=== PATIENT | female | born 1945 | race Caucasian/White ===

== ENCOUNTER → 2018-03-03 11:52 | Outpatient (CLI) | payer MEDICARE, SELFPAY ==
--- NOTE | 2018-03-03 11:53 | CA_ITS ---
PROCEDURE: 2-D M-mode and color Doppler study INDICATIONS FOR THE TEST: Chest pain X COPD Heart Murmur Tobacco SmokingEX Palpitations FatigueX Syncope Edema HypertensionXDiabetes Mellitus Rheumatic Fever SOBXDOEXObesityXHyperlipidemia Family History HD Additional History PATIENT INFORMATION HEIGHT: 64 WEIGHT:237 GENDER: Female B/P:137/74 2-D/M-MODE INTERPRETATION: 2-D MEASUREMENTS OBSERVED VALUES IN CMS Right Ventricular Dimension (RVDd) 1.1 Interventricular Septum (Thickness)(IVsd) .9 Left Ventricular Internal Dimensions(LVIDd) 6.0 Left Ventricular Posterior Wall (Thickness)(LVPWd) .9 Aortic Root 3.3 Aortic Cusp Separation 1.7 Left Atrial Dimensions (LAD) 3.6 2D 1. Left atrium is mildly enlarged, left ventricle is normal size, there is mild concentric left ventricular hypertrophy, visually estimated ejection fraction 55% with no obvious regional wall motion abnormality. 2. The right atrium and right ventricle are normal size and contractility. 3. The aortic valve is minimally thickened and fibrosed. Leaflet continue to display mobility. 4. The mitral and tricuspid valve leaflets are minimally thickened. 5. The pulmonic valve is poorly visualized. 6. No significant pericardial effusion noted. DOPPLER INTERROGATION: Doppler interrogation of the aortic, mitral and tricuspid valvular presence of mild aortic, mild mitral and tricuspid regurgitation, tricuspid and enteric velocity insufficient for calculation of the right ventricular systolic pressure, grade 1 diastolic dysfunction seen with tissue Doppler evidence of raised left atrial pressure. CONCLUSION: 1. Mildly enlarged left atrium, normal left ventricular size, mild concentric left ventricular hypertrophy, visually estimated ejection fraction 55% with no obvious regional wall motion abnormality, grade 1 diastolic dysfunction seen with tissue Doppler evidence of raised left atrial pressure. 2. Mild aortic, mild mitral and tricuspid regurgitation 3. No significant pericardial effusion noted.
--- NOTE | 2018-03-03 11:53 | NM_ITS ---
CARDIOLITE SPECT MYOCARDIAL PERFUSION SCAN, REST AND STRESS: EXERCISE STRESS [facility] REVIEW QGS EF AND WALL MOTION EVALUATION: QPS - PERFUSION EVALUATION HISTORY: CHEST PAIN AND SOB DOSE: 10.45 mCi technetium 99m mibi intravenously at rest followed by 32.0 mCi technetium 99m mibi following the intravenous ministration of 0.4 mg of Lexiscan. Resting blood pressure is 110/61. Stress blood pressure 120/61. FINDINGS: Ejection fraction is calculated to be 71%. Moderately decreased myocardial activity in the anterior apical wall with mildly decreased myocardial activity in the anterior apical wall. Images calculated ejection fraction of 71% with normal wall motion IMPRESSION: Anterior wall defect which is not consistent with breast attenuation although clinical correlation is advised. This test is most consistent with reversible ischemia in the anterior wall. Normal ejection fraction and normal wall motion
--- NOTE | 2018-03-03 13:50 | HMH.ITSHM ---
metoprolol spironolactone isosoribide hctz ezetimibe potassium vit e
== END ==
PROVIDERS: Family Provider Family Medicine; PCP Family Medicine; Visit Provider Internal Medicine
DX: I25.10 Atherosclerotic heart disease of native coronary artery without angina pectoris (principal); R06.00 Dyspnea, unspecified; R07.9 Chest pain, unspecified; R94.31 Abnormal electrocardiogram [ECG] [EKG]; E78.5 Hyperlipidemia, unspecified; I10 Essential (primary) hypertension; Z87.891 Personal history of nicotine dependence
CPT/HCPCS: 78452; 93017; 93306; A9502; J2785

== ENCOUNTER → 2018-12-02 13:52 | Outpatient (CLI) | payer MEDICARE, SELFPAY ==
[2018-12-02 15:08] LABS: Anion Gap 17.5 mEq/L (5-15); Blood Urea Nitrogen 20 mg/dL (7-18); Calcium 9.5 mg/dL (8.5-10.1); Carbon Dioxide 25 mmol/L (21.0-32.0); Chloride 99 mmol/L (98-107); Creatinine,Serum 1.14 mg/dL (0.55-1.02); Estimated Glomerular Filt Rate 47 ml/min (>60); GFR (African American) 56 ML/MIN (>60); Glucose 145 mg/dL (74-106); Potassium 3.5 mmoL/L (3.5-5.1); Sodium 138 mmol/L (136-145)
== END ==
PROVIDERS: Visit Provider Internal Medicine
DX: E66.01 Morbid (severe) obesity due to excess calories (principal); I10 Essential (primary) hypertension; I25.118 Atherosclerotic heart disease of native coronary artery with other forms of angina pectoris; R94.31 Abnormal electrocardiogram [ECG] [EKG]; Z87.891 Personal history of nicotine dependence; E78.49 Other hyperlipidemia
CPT/HCPCS: 36415; 80048

== ENCOUNTER → 2018-12-11 11:30 | Outpatient (CLI) | payer MEDICARE, SELFPAY ==
[2018-12-11 12:29] LABS: Occult Blood,Stool Negative (Negative)
[2018-12-13 19:31] LABS: C difficile Toxins AB, EIA Negative (Negative)
== END ==
PROVIDERS: Visit Provider Family Medicine
DX: K59.00 Constipation, unspecified (principal); R14.1 Gas pain; R19.7 Diarrhea, unspecified
CPT/HCPCS: 82272; 87045; 87324; G0328

== ENCOUNTER → 2019-12-08 14:25 | Outpatient (CLI) | payer MEDICARE, SELFPAY ==
--- NOTE | 2019-12-08 14:30 | XR_ITS ---
PROCEDURE: XR CLAVICLE LT CLINICAL INDICATION: KNOT ON LT CLAVICAL COMPARISON: No exams were available for comparison FINDINGS: Marker is placed at the area of palpable abnormality which is over the medial aspect of the left clavicle inferiorly. No discrete bony abnormalities evident at this region. CT would be better for evaluation of this area due to bony overlap of the ribs and spine. The distal clavicle has an unremarkable appearance. There is a area of soft tissue depression at the distal aspect of the clavicle which is of questionable clinical significance. IMPRESSION: No acute findings. Dictated by: Viktor Aponte MD 12/08/2019 14:46 Electronically signed by Viktor Aponte MD in [place] 12/09/2019 14:43
== END ==
PROVIDERS: PCP Family Medicine; Visit Provider Family Medicine
DX: R22.32 Localized swelling, mass and lump, left upper limb (principal)
CPT/HCPCS: 73000

== ENCOUNTER → 2019-12-09 13:56 | Outpatient (CLI) | payer MEDICARE, SELFPAY ==
--- NOTE | 2019-12-09 14:01 | XR_ITS ---
PROCEDURE: REPEAT VIEW XR CLINICAL INDICATION: Palpable nodule along the clavicle COMPARISON: No exams were available for comparison FINDINGS: Marker is placed at the area of palpable abnormality which is over the medial aspect of the left clavicle inferiorly. No discrete bony abnormalities evident at this region. CT would be better for evaluation of this area due to bony overlap of the ribs and spine. The distal clavicle has an unremarkable appearance. There is a area of soft tissue depression at the distal aspect of the clavicle which is of questionable clinical significance. IMPRESSION: No acute finding. Please see above for detail Dictated by: Viktor Aponte MD 12/09/2019 14:43 Electronically signed by Viktor Aponte MD in [place] 12/09/2019 14:43
== END ==
PROVIDERS: PCP Family Medicine; Visit Provider Family Medicine
DX: R22.32 Localized swelling, mass and lump, left upper limb (principal)

== ENCOUNTER 2021-03-24 09:45 | Emergency (ER) | payer MEDICARE, SELFPAY ==
--- NOTE | 2021-03-24 09:39 | ECG_ITS ---
APPROVED REPORT Exam: Resting ECG HR:52 bpm ECG Measurements Heart Rate 52 AXES DE 154 P 36 QRSd 116 QRS -10 QT 466 T 34 QTc 433 Conclusion Sinus bradycardia Incomplete right bundle branch block Old inferior and anterior changes Abnormal ECG Electronically signed by : Luis Antonio Granda, 03/25/2021 11:37:04
[2021-03-24 09:45] VITALS: BP 165/63; PULSE 53; RESP 14; TEMP 36.9; O2SAT 99; BMI 36.0
--- NOTE | 2021-03-24 09:53 | PC.NURSE ---
Dr Luke at bedside
--- NOTE | 2021-03-24 09:55 | XR_ITS ---
PROCEDURE: XR CHEST PORTABLE CLINICAL HISTORY: cough COMPARISON: No exams were available for comparison FINDINGS: The cardiomediastinal silhouette is unremarkable. Mild prominence of the bilateral garfield, predominantly in the left hilum. No lobar consolidation, pleural effusions or pneumothorax. Tortuous descending thoracic aorta is noted. Degenerative changes of the visualized thoracic spine. IMPRESSION: Mild prominence of the bilateral garfield, which may be vascular prominence. Lymph nodes cannot be completely excluded. If clinically indicated, nonemergent CT thorax with contrast should be considered for further evaluation. Dictated by: Nancy Vallejo 03/24/2021 10:34 Nancy Vallejo in [place] 03/24/2021 10:34
[2021-03-24 10:07] LABS: Basophils # 0.1 K/mm3 (0-0.2); Basophils % 1.4 % (0.1-2.0); Eosinophils # 0.3 K/mm3 (0.0-0.4); Eosinophils % 4.5 % (0.1-12.0); Hematocrit 42.7 % (37.0-47.0); Hemoglobin 14.6 g/dL (12.2-16.2); Lymphocytes # 1.3 K/mm3 (0.7-4.5); Lymphocytes % 22.2 % (10-50); Mean Corpuscular HGB Conc 34.2 g/dL (31.8-35.4); Mean Corpuscular Hemoglobin 31.5 pg (27.0-31.2); Mean Corpuscular Volume 91.9 fl (81-99); Mean Platelet Volume 8.3 fl (7.4-10.4); Monocytes # 0.6 K/mm3 (0.1-1.0); Monocytes % 10.2 % (1.7-9.3); Neutrophils # 3.5 K/mm3 (1.8-7.8); Neutrophils % 61.8 % (37.0-80.0); Platelet Count 247 K/mm3 (142-424); Red Blood Count 4.65 M/mm3 (4.20-5.40); Red Cell Distribution Width 13.3 % (11.5-17.5); White Blood Count 5.7 K/mm3 (4.8-10.8)
[2021-03-24 10:08] LABS: Chloride 102 mmol/L (98-107); Potassium 3.8 mmoL/L (3.5-5.1); Sodium 139 mmol/L (136-145)
[2021-03-24 10:10] LABS: Alanine Aminotransferase 20 U/L (12-78); Aspartate Amino Transferase 36 U/L (14-36); Blood Urea Nitrogen 23 mg/dl (7-17); Creatinine Clearance Estimated 72 mL/min (50-200); Estimated Glomerular Filt Rate 70 ml/min (>60); GFR (African American) 84 ML/MIN (>60)
[2021-03-24 10:11] LABS: Albumin Level 4.6 g/dl (3.5-5.0); Albumin/Globulin Ratio 1.5 (1.1-1.8); Alkaline Phosphatase 81 U/L (38-126); Anion Gap 11.8 mEq/L (5-15); Bilirubin,Total 0.8 mg/dl (0.2-1.3); Calcium 9.7 mg/dl (8.4-10.2); Carbon Dioxide 29 mmol/L (22.0-30.0); Globulin 3.1 g/dL (1.3-3.2); Glucose 115 mg/dl (74-100); Lipase 209 U/L (23-300); Total Protein,Serum 7.7 g/dl (6.3-8.2)
--- NOTE | 2021-03-24 10:11 | PC.NURSE ---
Talked to cm for admission.
--- NOTE | 2021-03-24 10:20 | HMH.EDCP ---
ED Disposition Clinical Impression: Nonspecific chest pain Disposition: Home, Self-Care Condition on Discharge: Good Instructions: DI for Chest Pain Referrals: Adela Ruiz MD [Primary Care Provider] - Tenzin Marques MD [Staff Physician] - - Critical Care Critical Care Time: No Attestation: On 03/24/21, the high probability of a clinically significant, sudden or life threatening deterioration of the following system(s) required my full and direct attention, intervention and personal management. The time I documented below is in addition to time spent performing reported procedures but includes the following listed in this critical care notation. Medical Decision Making - Medical Records Medical records reviewed: Yes: I reviewed the patient's medical records. - Venancio Inquiry Pt receiving controlled substance: No Vital Signs: 03/24/21 09:45 03/24/21 11:35 03/24/21 11:45 Temperature 98.4 F Temperature Source Oral Pulse Rate 50 L 49 L Pulse Rate [Left Radial] 53 L Respiratory Rate 14 16 14 Blood Pressure 127/55 L 122/67 Blood Pressure [Right Arm] 165/63 H Blood Pressure Mean 93 Blood Pressure Mean [Right Arm] 97 02 Sat by Pulse Oximetry 99 99 98 Oxygen Delivery Method Room Air 03/24/21 12:31 03/24/21 13:15 Temperature Temperature Source Pulse Rate 51 L 49 L Pulse Rate [Left Radial] Respiratory Rate 20 17 Blood Pressure 131/62 129/65 Blood Pressure [Right Arm] Blood Pressure Mean Blood Pressure Mean [Right Arm] 02 Sat by Pulse Oximetry 97 99 Oxygen Delivery Method - Lab Data Lab Results 03/24/21 09:49: WBC 5.7, RBC 4.65, Hgb 14.6, Hct 42.7, MCV 91.9, MCH 31.5 H, MCHC 34.2, RDW 13.3, Plt Count 247, MPV 8.3, Neut % (Auto) 61.8, Lymph % (Auto) 22.2, Bucks % (Auto) 10.2 H, Eos % (Auto) 4.5, Baso % (Auto) 1.4, Neut # (Auto) 3.5, Lymph # (Auto) 1.3, Bucks # (Auto) 0.6, Eos # (Auto) 0.3, Baso # (Auto) 0.1 03/24/21 09:49: Sodium 139, Potassium 3.8, Chloride 102, Carbon Dioxide 29, Anion Gap 11.8, BUN 23 H, Creatinine 0.80, Estimated Creat Clear 72, Estimated GFR 70, Est GFR ( Amer) 84, Glucose 115 H, Calcium 9.7, Total Bilirubin 0.8, AST 36, ALT 20, Alkaline Phosphatase 81, Troponin I < 0.01, NT-Pro-B Natriuret Pep 262, Total Protein 7.7, Albumin 4.6, Globulin 3.1, Albumin/Globulin Ratio 1.5, Lipase 209, TSH 2.32 03/24/21 13:10: Troponin I < 0.01 Result diagrams: 03/24/21 09:49 03/24/21 09:49 Orders (Tests/Meds): ED MEDICATIONS Discontinued Medications Generic Name Dose Route Start Last Admin Trade Name Freq PRN Reason Stop Dose Admin Acetaminophen 1,000 mg 03/24/21 11:45 03/24/21 11:48 Acetaminophen 500mg Tab PO 03/24/21 11:46 Not Given ONCE ONE ORDERS Category Date Time Status Troponin I Q3H Lab 03/24/21 16:00 Ordered - Radiology Data #1 Image(s): Chest Image Reviewed: Yes I reviewed the patient's radiology results, Yes I reviewed the patient's radiology image, Yes I have reviewed radiologist's interpretation IMPRESSION: Mild prominence of the bilateral garfield, which may be vascular prominence. Lymph nodes cannot be completely excluded. If clinically indicated, nonemergent CT thorax with contrast should be considered for further evaluation. - ECG Data Tracing #1 Bradycardic rate of 52 bpm, normal IN interval, normal QTC. Sinus bradycardia with nonspecific changes. ECG initial impression date: 03/24/21 ECG initial impression time: 09:41 - Reevaluation(s) Time: 14:04 Reevaluation #1: On reevaluation, patient remains pain-free. Negative troponin. Patient has been evaluated by cardiology. We have arranged for follow-up in clinic in 48 h. Patient and family were given strict return precautions for any change in symptoms. Patient verbalized understanding. Medical Decision Narrative: 75-year-old female presented to the emergency department with some chest discomfort. Patient currently pain-free. C
[2021-03-24 10:21] LABS: NT Pro Brain Natriuretic Pep. 262 pg/mL (0-450)
[2021-03-24 10:25] LABS: Troponin I < 0.01 ng/ml (0.00-0.034)
[2021-03-24 10:42] LABS: Thyroid Stimulating Hormone 2.32 uIU/mL (0.465-4.68)
--- NOTE | 2021-03-24 11:30 | PC.NURSE ---
wants 3hr troponin. Updated pt on POC
[2021-03-24 11:35] VITALS: BP 127/55; PULSE 50; RESP 16; O2SAT 99
[2021-03-24 11:45] VITALS: BP 122/67; PULSE 49; RESP 14; O2SAT 98
[2021-03-24 12:31] VITALS: BP 131/62; PULSE 51; RESP 20; O2SAT 97
[2021-03-24 13:15] VITALS: BP 129/65; PULSE 49; RESP 17; O2SAT 99
--- NOTE | 2021-03-24 13:38 | PC.NURSE ---
Pt up to restroom
[2021-03-24 14:00] LABS: Troponin I < 0.01 ng/ml (0.00-0.034)
[2021-03-24 14:22] VITALS: BP 126/70; PULSE 74; RESP 16; TEMP 36.8; O2SAT 98
== END 2021-03-24 14:23 | disposition home or self-care (01) ==
PROVIDERS: Emergency Provider Emergency Medicine; PCP Family Medicine
DX: R07.89 Other chest pain (principal); R06.02 Shortness of breath; E78.5 Hyperlipidemia, unspecified; I10 Essential (primary) hypertension; Z88.2 Allergy status to sulfonamides
CPT/HCPCS: 36415; 71045; 80053; 83690; 83880; 84443; 84484; 85025; 93005; 99282

== ENCOUNTER → 2021-04-17 06:53 | Outpatient (CLI) | payer MEDICARE, SELFPAY ==
--- NOTE | 2021-04-17 06:55 | CA_ITS ---
APPROVED REPORT Exam: Pharmacologic Technologist: elgin sky, Ht: 5 ft 4 in Wt: 199 lbs BSA: 1.95 m2 HR: 52 bpm BP: 153/73 mmHg Indications: CP Medical History Medications: Isosorbide,,,,, Metoprolol,,,,, Asa,,,,, Vitamin E,,,,, HCTZ,,,,, SpirOnolactone,,,,, Ezetimbe,,,,, Nitro,,,,, Allergies: Sulfa, Statins Cardiac Risk Factors: HTN, Hyperlipidemia Stress Test Details Test: LEXISCAN HR Resting HR: 55 bpm Max Heart Rate (APMHR): 144.541862 bpm Max HR Achieved: 86 bpm Target HR (85% APMHR): 122.248200 bpm % of APMHR: 59.72 Recovery HR: 69 bpm BP Resting BP: 153/73 mmHg Max BP: 153/73 mmHg Recovery BP: 133.0/69.0 mmHg ECG Clinical Exercise duration: 04:02 min Highest Stage Achieved: Stress ECG Conclusion No chest pain. SOA during peak infusion, resolved during recovery. No arrhythmia or ectopy. Less than 1.5mm ST segment changes. Images to follow. Electronically signed by : Tenzin Marques, 04/21/2021 12:50:35
--- NOTE | 2021-04-17 06:55 | CT_ITS ---
PROCEDURE: CT CHEST WO CON CLINICAL INDICATION: cp/dyspnea Nonsmoker COMPARISON: CR XR CHEST PORTABLE from 03/24/2021 TECHNIQUE: Axial images obtained with sagittal and coronal reformats. All CT scans at the facility use one or more dose reduction, viz: automated exposure control, ma/kV adjustment per patient size (including targeted exams where dose is matched to indication, i.e. head), or iterative reconstruction technique. FINDINGS: HEART AND MEDIASTINAL STRUCTURES: There are coronary artery calcifications present. No mediastinal or hilar mass or adenopathy. There is a small hiatal hernia. LUNGS AND PLEURAL SPACES: Small irregular subpleural density present in the right upper lobe posteriorly at 4 mm and a small subpleural opacity in the left lower lobe superior segment at 4 mm. These are nonspecific and could be due to areas of scarring. No lobar consolidation. No suspicious masses or effusions. BONY STRUCTURES: Degenerative changes thoracic spine. UPPER ABDOMEN: Unremarkable. ADDITIONAL FINDINGS: Postsurgical changes with partially calcified mass in the mid aspect of the left breast. Please correlate with mammography the lesion measures approximately 2 by 1.5 cm. IMPRESSION: 1. No acute finding of the chest. 2. Coronary artery calcifications consistent with coronary artery disease. 3. Small subpleural opacities right upper lobe and left lower lobe possibly due to scarring and may be confirmed with 6-12 month follow-up. 4. Partially calcified 2 cm mass in the central superior aspect of the left breast which could be due to postsurgical scarring. Recommend correlation with mammography. Residual or recurrence neoplasm is not excluded Dictated by: Viktor Aponte MD 04/18/2021 07:54 Viktor Aponte MD in [place] 04/18/2021 07:54
--- NOTE | 2021-04-17 06:55 | NM_ITS ---
APPROVED REPORT Exam: Nuclear Stress Test Indication: Chest pain, SOB, HTN, High cholesterol Patient Location: Outpatient Stress Tech: Rashida Denis [place] Tech:Alise Sanchez, ARRT, RT (R)(N) Ht: 5 ft 5 in Wt: 189 lbs Bra Size: D HR: 52 bpm BP: 153/73 mmHg BSA: 1.93 m2 BMI: 31.4 History: Chest pain, SOB, HTN, High cholesterol Procedure: Patient received a 0.4 mg of intravenous Lexiscan, resting heart rate 52 bpm, resting blood pressure 153/73 mmHg, with Lexiscan maximum heart rate achived was 86 bpm which is % of the maximum predicted heart rate and blood pressure was 153/73 mmHg. With Lexiscan, patient denied any complaint of chest pain. Cardiac Stress and Resting SPECT Images: Cardiac Stress and Resting SPECT images were obtained using technetium 99m Myoview 29.8 mCi stress and 10.51 mCi at rest. Ejection fraction: 70% No wall motion abnormalities. No fixed or reversible defects. Conclusion: Normal Electronically signed by : Viktor Aponte MD 04/19/2021 14:10:54
--- NOTE | 2021-04-17 09:37 | HMH.ITSHM ---
Current Home Medications as stated by this patient Monique Edgar or outbound sales representative. []METOPROLOL HCTZ SPIRONOLACTONE ISOSORBIDE EFEFIMIBE VITAMINS
== END ==
PROVIDERS: PCP Family Medicine; Visit Provider Physician Assistant
DX: E78.2 Mixed hyperlipidemia (principal); I10 Essential (primary) hypertension; I20.9 Angina pectoris, unspecified; R53.1 Weakness; R53.83 Other fatigue
CPT/HCPCS: 71250; 78452; 93017; A9502; J2785

== ENCOUNTER → 2021-04-24 09:01 | Outpatient (CLI) | payer MEDICARE, SELFPAY ==
[2021-04-24 10:12] LABS: Alanine Aminotransferase 16 U/L (12-78); Albumin Level 4.7 g/dl (3.5-5.0); Alkaline Phosphatase 90 U/L (38-126); Aspartate Amino Transferase 30 U/L (14-36); Bilirubin,Direct 0.3 mg/dl (0.0-0.4); Bilirubin,Indirect 0.6 mg/dL (0.0-0.9); Bilirubin,Total 0.9 mg/dl (0.2-1.3); Bilirubin,Unconjugated 0.6 mg/dL (0.0-1.1); Chol/HDL Ratio 3.9 (1-3.5); Cholesterol 228 mg/dl (140-200); HDL Cholesterol 59 mg/dl (40-60); Total Protein,Serum 7.6 g/dl (6.3-8.2); Triglycerides 110 mg/dl (30-150); VLDL Cholesterol 22 mg/dL (0-40)
[2021-04-24 10:24] LABS: Direct LDL Cholesterol 140.91 mg/dL (100-129)
== END ==
PROVIDERS: Visit Provider Physician Assistant
DX: E78.2 Mixed hyperlipidemia (principal); I10 Essential (primary) hypertension; R53.1 Weakness; R53.83 Other fatigue
CPT/HCPCS: 36415; 80061; 80076

== ENCOUNTER → 2021-05-18 07:48 | Outpatient (CLI) | payer MEDICARE, SELFPAY | PROVIDERS: PCP Family Medicine; Visit Provider Physician Assistant | DX: R06.09 Other forms of dyspnea (principal) | CPT/HCPCS: 94060; 94726; 94729 ==

== ENCOUNTER 2021-06-21 07:55 | Outpatient (CLI) | payer MEDICARE, SELFPAY ==
[2021-06-21] VITALS (8 sets, daily range): BP systolic 116–134; BP diastolic 64–78; PULSE 55–65; RESP 16–18; TEMP 36.9–37.1; O2SAT 95–100; BMI 32.5
== END 2021-06-21 10:10 | disposition home or self-care (01) ==
LOC: INF 07:56
PROVIDERS: PCP Family Medicine; Visit Provider Family Medicine
DX: U07.1 COVID-19 (principal)
CPT/HCPCS: 96365

== ENCOUNTER → 2021-07-11 08:50 | Outpatient (CLI) | payer MEDICARE, SELFPAY ==
--- NOTE | 2021-07-11 08:57 | FL_ITS ---
PROCEDURE: FL UPPER GI SMALL BOWEL CLINICAL INDICATION: EPIGASTRIC PAIN COMPARISON: CT CT CHEST WO CON from 04/17/2021 FINDINGS: Fluoroscopy time: 1 minutes and 41 seconds Scrum Coach exam shows lumbar scoliosis convex left. There is a small sliding hiatal hernia. There is moderate gastroesophageal reflux demonstrated during the exam. No ulcer or mass is evident. Small bowel follow-through is performed. No obstructing lesions mucosal abnormalities or strictures apparent. Terminal ileum has an unremarkable appearance. IMPRESSION: Small sliding hiatal hernia with gastroesophageal reflux otherwise negative upper GI and small-bowel follow-through. Dictated by: Viktor Aponte MD 07/11/2021 13:27 Viktor Aponte MD in [place] 07/11/2021 13:27
== END ==
PROVIDERS: PCP Family Medicine; Visit Provider Family Medicine
DX: R10.13 Epigastric pain (principal)
CPT/HCPCS: 74246; 74248

== ENCOUNTER → 2021-12-21 13:45 | Outpatient (CLI) | payer MEDICARE, SELFPAY ==
[2021-12-21 15:19] LABS: Alanine Aminotransferase 17 U/L (12-78); Albumin Level 4.6 g/dl (3.5-5.0); Alkaline Phosphatase 77 U/L (38-126); Aspartate Amino Transferase 31 U/L (14-36); Bilirubin,Direct 0.2 mg/dl (0.0-0.4); Bilirubin,Indirect 0.7 mg/dL (0.0-0.9); Bilirubin,Total 0.9 mg/dl (0.2-1.3); Bilirubin,Unconjugated 0.7 mg/dL (0.0-1.1); Cholesterol 164 mg/dl (140-200); HDL Cholesterol 54 mg/dl (40-60); Total Protein,Serum 7.1 g/dl (6.3-8.2); Triglycerides 111 mg/dl (30-150); VLDL Cholesterol 22 mg/dL (0-40)
[2021-12-21 15:29] LABS: Direct LDL Cholesterol 93.11 mg/dL (100-129)
== END ==
PROVIDERS: PCP Family Medicine; Visit Provider Physician Assistant
DX: E78.5 Hyperlipidemia, unspecified (principal)
CPT/HCPCS: 36415; 80061; 80076

== ENCOUNTER → 2023-05-15 11:05 | Outpatient (CLI) | payer MEDICARE, SELFPAY ==
[2023-05-15 11:38] LABS: Basophils % 0.7 % (0.1-2.0); Eosinophils # 0.3 K/mm3 (0.0-0.4); Eosinophils % 5.2 % (0.1-12.0); Hematocrit 40.2 % (37.0-47.0); Hemoglobin 13.1 g/dL (12.2-16.2); Lymphocytes # 1.1 K/mm3 (0.7-4.5); Lymphocytes % 21.4 % (10-50); Mean Corpuscular HGB Conc 32.6 g/dL (31.8-35.4); Mean Corpuscular Hemoglobin 29.8 pg (27.0-31.2); Mean Corpuscular Volume 91.5 fl (81-99); Mean Platelet Volume 7.9 fl (7.4-10.4); Monocytes # 0.4 K/mm3 (0.1-1.0); Monocytes % 8.1 % (1.7-9.3); Neutrophils # 3.4 K/mm3 (1.8-7.8); Neutrophils % 64.5 % (37.0-80.0); Platelet Count 261 K/mm3 (142-424); Red Cell Distribution Width 12.8 % (11.5-17.5); White Blood Count 5.2 K/mm3 (4.8-10.8)
[2023-05-15 11:48] LABS: Alanine Aminotransferase 23 U/L (12-78); Albumin Level 4.4 g/dl (3.5-5.0); Alkaline Phosphatase 112 U/L (38-126); Anion Gap 11.7 mEq/L (5-15); Aspartate Amino Transferase 34 U/L (14-36); Bilirubin,Indirect 0.6 mg/dL (0.0-0.9); Bilirubin,Total 0.6 mg/dl (0.2-1.3); Bilirubin,Unconjugated 0.8 mg/dL (0.0-1.1); Blood Urea Nitrogen 19 mg/dl (7-17); Calcium 8.9 mg/dl (8.4-10.2); Carbon Dioxide 28 mmol/L (22.0-30.0); Chloride 102 mmol/L (98-107); Chol/HDL Ratio 2.6 (1-3.5); Cholesterol 148 mg/dl (140-200); Estimated Glomerular Filt Rate 60 ml/min (>60); GFR (African American) 73 ML/MIN (>60); Glucose 109 mg/dl (74-100); HDL Cholesterol 58 mg/dl (40-60); Potassium 3.7 mmoL/L (3.5-5.1); Sodium 138 mmol/L (136-145); Total Protein,Serum 7.4 g/dl (6.3-8.2); Triglycerides 112 mg/dl (30-150); VLDL Cholesterol 22 mg/dL (0-40)
[2023-05-15 12:18] LABS: Thyroid Stimulating Hormone 0.88 uIU/mL (0.465-4.68)
[2023-05-15 12:34] LABS: Free T4 (Free Thyroxine) 0.93 ng/dl (0.78-2.19)
== END ==
PROVIDERS: PCP Family Medicine; Visit Provider Physician Assistant
DX: E66.01 Morbid (severe) obesity due to excess calories (principal); E78.5 Hyperlipidemia, unspecified; I11.9 Hypertensive heart disease without heart failure; I25.10 Atherosclerotic heart disease of native coronary artery without angina pectoris; K21.9 Gastro-esophageal reflux disease without esophagitis; R94.31 Abnormal electrocardiogram [ECG] [EKG]; R06.00 Dyspnea, unspecified; I63.9 Cerebral infarction, unspecified; Z68.34 Body mass index [BMI] 34.0-34.9, adult
CPT/HCPCS: 80048; 80061; 80076; 84439; 84443; 85025

== ENCOUNTER 2023-12-04 10:19 | Outpatient (CLI) | payer MEDICARE, SELFPAY ==
[2023-12-04 12:10] LABS: Chloride 101 mmol/L (98-107); Potassium 3.1 mmoL/L (3.5-5.1); Sodium 137 mmol/L (136-145)
[2023-12-04 12:13] LABS: Anion Gap 11.1 mEq/L (5-15); Blood Urea Nitrogen 20 mg/dl (7-17); Calcium 8.8 mg/dl (8.4-10.2); Carbon Dioxide 28 mmol/L (22.0-30.0); Estimated Glomerular Filt Rate 69 ml/min (>60); GFR (African American) 84 ML/MIN (>60); Glucose 141 mg/dl (74-100)
== END 2023-12-04 23:59 ==
PROVIDERS: PCP Family Medicine; Visit Provider Nurse Practitioner Family
DX: I10 Essential (primary) hypertension; E78.5 Hyperlipidemia, unspecified; E66.01 Morbid (severe) obesity due to excess calories; Z68.30 Body mass index [BMI] 30.0-30.9, adult
CPT/HCPCS: 36415; 80048

== ENCOUNTER 2024-05-18 10:34 | Outpatient (CLI) | payer MEDICARE, SELFPAY ==
[2024-05-18 11:18] LABS: Anion Gap 11.2 mEq/L (5-15); Blood Urea Nitrogen 26 mg/dl (7-17); Carbon Dioxide 30 mmol/L (22.0-30.0); Chloride 99 mmol/L (98-107); Estimated Glomerular Filt Rate 53 ml/min (>60); GFR (African American) 65 ML/MIN (>60); Glucose 112 mg/dl (74-100); Potassium 3.2 mmoL/L (3.5-5.1); Sodium 137 mmol/L (136-145)
== END 2024-05-18 23:59 | disposition home or self-care (01) ==
LOC: LAB 10:34
PROVIDERS: PCP Family Medicine; Visit Provider Nurse Practitioner
DX: I11.9 Hypertensive heart disease without heart failure (principal); I25.10 Atherosclerotic heart disease of native coronary artery without angina pectoris; E78.2 Mixed hyperlipidemia; R94.31 Abnormal electrocardiogram [ECG] [EKG]; K21.9 Gastro-esophageal reflux disease without esophagitis
CPT/HCPCS: 36415; 80048

== ENCOUNTER 2024-05-25 11:05 | Outpatient (CLI) | payer MEDICARE, SELFPAY ==
--- NOTE | 2024-05-25 11:08 | CA_ITS ---
APPROVED REPORT EXAM: Comprehensive 2D, Doppler, and color-flow Echocardiogram Wool Hat Finisher: Elsie Cummins RVT Ht: 5 ft 2 in Wt: 157lbs BSA: 1.72 BP: 116/73 mmHg Indications: DYSPENA,FATIGUE,HTN,CAD,HLD,DD 2D Dimensions LA Volume 36.40 mL LA Volume Index 21.04 mL/m2 (M/F) 16-34 M-Mode Dimensions LA Diam 4.00 cm (1.9-4.0) LVDd 4.70 cm (3.5-5.7) LVDs 3.29 cm (3.5-5.7) IVSd 0.60 cm (0.6-1.1) PWd 0.56 cm (0.6-1.1) EF (Teich) 57.20% FS 30.00% EDV (Teich) 102.40 mL TAPSE 2.78 (<1.7) ESV (Teich) 43.80 mL LV Diastology E Decel Time 287 (160-240 msec) E/A Ratio 0.6 Aortic Valve RAD Index 0.68 cm2/m2 AoV Peak Fer. 203.0 (50-130 cm/s) AO Peak GR. 16.50 mmHg AO Mean GR. 8.80 (<5 mmHg) AO VTI 44.5 (18-25 cm) RAD (VTI) 1.21 (2.5-4.5 cm2) Mitral Valve MV E Max Fer. 54.0 (40-130 cm/s) MV A Velocity 96.0 (40-130 cm/s) E/A Ratio 0.56 MV PHT 84.0 ms Pulmonary Valve PV Peak Velocity 43.0 (50-150 cm/s) Tricuspid Valve TR P. Velocity 230.00 cm/s RAP Estimate 10.00 mmHg RVSP 31.20 mmHg Left Ventricle The left ventricle is normal size. The left ventricular systolic function is normal. The left ventricular ejection fraction is within the normal range. There is increase in LV wall thickness. There is normal LV segmental wall motion. Transmitral Doppler flow pattern suggests impaired LV relaxation. LVEF is 55%. Right Ventricle Right ventricle is mildly dilated. The right ventricular systolic function is normal. Atria The left atrium size is normal. The right atrium size is normal. There is no Doppler evidence of interatrial shunt. Aortic Valve The aortic valve is mildly thickened. Mild aortic stenosis is present. Peak velocity 2.0 m/s. Mean AV gradient 8 mmHg. Max AV gradient 16 mmHg. RAD by continuity equation is 1.5 cm???. Trace aortic regurgitation. Mitral Valve The mitral valve leaflets are mildly thickened. No evidence of mitral valve stenosis. Mild mitral regurgitation. Tricuspid Valve The tricuspid valve leaflets are thin and pliable. Mild tricuspid regurgitation. RVSP is 20-25 mmHg. Pulmonic Valve The pulmonary valve is normal in structure. Mild pulmonic regurgitation. Great Vessels The aortic root is normal in size. The ascending aorta is normal in size. IVC is normal in size and collapses >50% with inspiration. Pericardium There is no pericardial effusion. Other Information Study Quality: Fair Conclusion Normal biventricular systolic function. Mild RV dilation. Mild (peak velocity 2.0 m/s. Mean AV gradient 8 mmHg. Max AV gradient 16 mmHg. RAD by continuity equation is 1.5 cm???). Mild MR, mild TR, mild PI. Electronically signed by : Shirlene Trevizo MD 05/29/2024 23:20:45
== END 2024-05-25 23:59 | disposition home or self-care (01) ==
LOC: RT 11:07
PROVIDERS: PCP Family Medicine; Visit Provider Nurse Practitioner
DX: R53.83 Other fatigue (principal); I51.89 Other ill-defined heart diseases; R06.09 Other forms of dyspnea
CPT/HCPCS: 93306

== ENCOUNTER 2024-11-25 10:59 | Outpatient (CLI) | payer MEDICARE, SELFPAY ==
[2024-11-25 11:39] LABS: Basophils # 0.1 K/mm3 (0-0.2); Basophils % 0.8 % (0.1-2.0); Eosinophils # 0.2 K/mm3 (0.0-0.4); Eosinophils % 2.3 % (0.1-12.0); Lymphocytes % 13.8 % (10-50); Mean Corpuscular Volume 91.5 fl (81-99); Mean Platelet Volume 9.4 fl (7.4-10.4); Monocytes # 0.8 K/mm3 (0.1-1.0); Monocytes % 10.5 % (1.7-9.3); Neutrophils # 5.3 K/mm3 (1.8-7.8); Neutrophils % 72.3 % (37.0-80.0); Platelet Count 245 K/mm3 (142-424); Red Blood Count 4.37 M/mm3 (4.20-5.40); Red Cell Distribution Width 12.7 % (11.5-17.5); White Blood Count 7.3 K/mm3 (4.8-10.8)
[2024-11-25 12:32] LABS: Alanine Aminotransferase 20 U/L (12-78); Albumin Level 4.6 g/dl (3.5-5.0); Albumin/Globulin Ratio 1.8 (1.1-1.8); Alkaline Phosphatase 100 U/L (38-126); Aspartate Amino Transferase 35 U/L (14-36); Blood Urea Nitrogen 26 mg/dl (7-17); Calcium 9.9 mg/dl (8.4-10.2); Carbon Dioxide 35 mmol/L (22.0-30.0); Chloride 92 mmol/L (98-107); Estimated Glomerular Filt Rate 43 ml/min (>60); GFR (African American) 52 ML/MIN (>60); Globulin 2.5 g/dL (1.3-3.2); Glucose 111 mg/dl (74-100); Sodium 136 mmol/L (136-145); Total Protein,Serum 7.1 g/dl (6.3-8.2)
[2024-11-25 12:48] LABS: 25-OH Vitamin D, Total 45.9 ng/mL (30-100)
[2024-11-25 13:21] LABS: Vitamin B12 840 pg/mL (239-931)
[2024-11-25 15:17] LABS: Anion Gap 11.6 mEq/L (5-15)
[2024-11-25 15:21] LABS: Potassium 2.6 mmoL/L (3.5-5.1)
[2024-11-27 16:00] LABS: Chol/HDL Ratio 6.5 (1-3.5); Cholesterol 311 mg/dl (140-200); HDL Cholesterol 48 mg/dl (40-60); Iron 118 ug/dL (37-170); Triglycerides 162 mg/dl (30-150); VLDL Cholesterol 32 mg/dL (0-40)
[2024-11-27 16:10] LABS: Total Iron Binding Capacity 319 ug/dL (265-497)
[2024-11-27 16:11] LABS: Direct LDL Cholesterol 232.21 mg/dL (100-129)
[2024-12-05 03:48] LABS: 1,25 Dihydroxy Vitamin D 35 pg/mL (.); 1,25-Dihydroxy, Vitamin D-2 <10 pg/mL (.); 1,25-Dihydroxy, Vitamin D-3 35 pg/mL (.)
== END 2024-11-25 23:59 | disposition home or self-care (01) ==
LOC: LAB 10:59
PROVIDERS: PCP Family Medicine; Visit Provider Family Medicine
DX: R53.83 Other fatigue (principal); I10 Essential (primary) hypertension; E78.5 Hyperlipidemia, unspecified; E87.6 Hypokalemia; D64.9 Anemia, unspecified
CPT/HCPCS: 36415; 80053; 80061; 82306; 82607; 82652; 83540; 83550; 85025

== ENCOUNTER 2025-02-14 17:43 | Emergency (ER) | payer MEDICARE, SELFPAY ==
[2025-02-14] VITALS (7 sets, daily range): BP systolic 131–169; BP diastolic 78–101; PULSE 71–91; RESP 13–24; TEMP 36.7–37.1; O2SAT 97–99; BMI 24.9
--- NOTE | 2025-02-14 17:45 | ECG_ITS ---
APPROVED REPORT Exam: Resting ECG HR:83 bpm ECG Measurements Heart Rate 83 AXES UT 153 P -8 QRSd 122 QRS -55 QT 384 T 34 QTc 424 Conclusion Sinus rhythm Right bundle manage block Left anterior fascicular block Electronically signed by : SHIMON VALENTIN, 02/14/2025 22:26:46
--- NOTE | 2025-02-14 17:52 | XR_ITS ---
PROCEDURE INFORMATION: Exam: XR Chest Exam date and time: 02/14/2025 6:05 PM Age: 79 years old Clinical indication: Other: Near syncope TECHNIQUE: Imaging protocol: Radiologic exam of the chest. Views: 1 view. COMPARISON: CT CHEST WO CON 04/17/2021 6:57 AM FINDINGS: Airway: Airways are patent. Lungs: Low lung volumes causes crowding of the bronchovascular structures. No consolidations. Calcified granulomas throughout the lungs are benign. Pleural spaces: No pleural effusions or pneumothorax. Heart/Mediastinum: Cardiomediastinal silhouette is magnified due to technique. Vasculature: Tortuous aorta. Bones/joints: Calcifications in the right rotator cuff, favoring chronic calcific tendinopathy. No acute skeletal abnormality or aggressive osseous lesion. IMPRESSION: No acute findings.
[2025-02-14 17:53] LABS: Coronavirus 19, PCR Not Detected (NotDetected); Influenza A, PCR Not Detected (NotDetected); Influenza B, PCR Not Detected (NotDetected)
[2025-02-14 18:00] LABS: Basophils % 0.9 % (0.1-2.0); Eosinophils # 0.1 K/mm3 (0.0-0.4); Eosinophils % 2.9 % (0.1-12.0); Hematocrit 43.7 % (37.0-47.0); Hemoglobin 14.4 g/dL (12.2-16.2); Lymphocytes # 0.7 K/mm3 (0.7-4.5); Mean Corpuscular Hemoglobin 30.1 pg (27.0-31.2); Mean Corpuscular Volume 91.4 fl (81-99); Mean Platelet Volume 9.7 fl (7.4-10.4); Monocytes # 0.4 K/mm3 (0.1-1.0); Monocytes % 8.7 % (1.7-9.3); Neutrophils # 3.2 K/mm3 (1.8-7.8); Neutrophils % 71.3 % (37.0-80.0); Platelet Count 248 K/mm3 (142-424); Red Blood Count 4.78 M/mm3 (4.20-5.40); Red Cell Distribution Width 12.1 % (11.5-17.5); White Blood Count 4.5 K/mm3 (4.8-10.8)
[2025-02-14 18:04] LABS: Albumin Level 4.5 g/dl (3.5-5.0); Chloride 101 mmol/L (98-107); Potassium 4.3 mmoL/L (3.5-5.1); Sodium 139 mmol/L (136-145)
[2025-02-14 18:05] LABS: Lactate Venous 1.5 mmol/L (0.4-2.0); VBG Base Excess 0.5 mmol/L (-2.4-2.3); VBG HCO3 25.4 mmol/L (23-30); VBG Oxygen Saturation 54.3 % (50-70); VBG PCO2 43.1 mmol/L (35-51); VBG PH 7.39 mmol/L (7.31-7.41); VBG PO2 29.4 mmol/L (28-40); VBG Total CO2 26.8 mmol/L (23-27)
[2025-02-14 18:07] LABS: Alanine Aminotransferase 15 U/L (12-78); Albumin/Globulin Ratio 1.3 (1.1-1.8); Alkaline Phosphatase 163 U/L (38-126); Anion Gap 13.3 mEq/L (5-15); Aspartate Amino Transferase 28 U/L (14-36); Bilirubin,Total 0.9 mg/dl (0.2-1.3); Blood Urea Nitrogen 22 mg/dl (7-17); Calcium 9.8 mg/dl (8.4-10.2); Carbon Dioxide 29 mmol/L (22.0-30.0); Creatine Kinase 36 U/L (30-135); Creatinine Clearance Estimated 39 mL/min (50-200); Estimated Glomerular Filt Rate 43 ml/min (>60); GFR (African American) 52 ML/MIN (>60); Globulin 3.6 g/dL (1.3-3.2); Glucose 141 mg/dl (74-100); Total Protein,Serum 8.1 g/dl (6.3-8.2)
--- NOTE | 2025-02-14 18:07 | PC.NURSE ---
xray at bedside
[2025-02-14 18:08] LABS: Magnesium 2.3 mg/dl (1.6-2.3)
[2025-02-14 18:10] LABS: Activated Partial Thrombo Time 24.1 seconds (22.8-30.6); INR 0.92 (0.9-1.1); Prothrombin Time 10.4 seconds (10.1-12.5)
[2025-02-14 18:22] LABS: Troponin I < 0.01 ng/ml (0.00-0.034)
--- NOTE | 2025-02-14 18:22 | ED_ITS ---
Discharge Plan Disposition Patient Disposition: Home, Self-Care Chief Complaint: Abdominal Pain Prescriptions Prescriptions: No Action furosemide [Lasix] 20 mg tablet 20 mg PO DAILY Qty: 90 3RF potassium chloride 10 mEq capsule, extended release 10 meq PO BID Qty: 180 2RF Referrals Follow up/Referrals: Adela Ruiz MD [Primary Care Provider] - See instructions Activity Restrictions/Add. Instructions Additional Instructions/Restrictions: Call your family doctor to establish care for this visit to the emergency department and schedule follow-up within 48 hours to ensure improvement. If you have any worsening of your condition or any other concerning signs or symptoms, return to the emergency department or your primary care doctor for further evaluation. 1 capful of MiraLAX (polyethylene glycol the generic) daily to prevent constipation. Clinical Impressions Clinical Impression: Vomiting, Abdominal pain, Diarrhea Instructions Patient Instructions: DI for Acute Abdominal Pain Print Language Print Language: Icelandic Discharge ED Provider: Tobi Alex General Adult HPI General Chief complaint: Abdominal Pain Stated complaint: n/v/d Time Seen by Provider: 02/14/25 17:46 Mode of Arrival: EMS Source of Information: Patient and EMS Description of Symptoms (Recalled from ER Triage Doc. by RN): Pt presents via [facility] ems from home for evaluation of abd pain that radiated into chest. Pt states that she felt weak and like she was going to pass out. Pt had 2 episodes of emesis today and an episode of diarrhea. Pt reports her last normal bowel movement was 4 days ago, and states that she did take some laxatives. History of Present Illness HPI narrative: Please note that above description of symptoms, in this electronic medical record under categorization of recalled from ER triage doctor by RN are reflective of an initial nursing assessment, however, is not reflective of my full history and physical exam that was personally taken and clarified. Consequentially, this preceding description of symptoms, which may include the patient's categorized chief complaint in the EMR, do not reflect my personal clinical impression, and the ultimate description of history of present illness and patient stated complaints should be deferred to this section of the note. Unless stated otherwise or congruent with this section of the note, additional signs, symptoms, or incongruence should be interpreted as inaccurate with my clinical impression. Related Data Previous Rx's ?Medication ?Instructions ?Recorded potassium chloride 10 mEq 10 meq PO BID #180 caps 05/18/24 capsule,extended release furosemide 20 mg tablet (Lasix) 20 mg PO DAILY #90 tabs 09/17/24 Allergies Allergy/AdvReac Type Severity Reaction Status Date / Time Sulfa (Sulfonamide Allergy Unknown Verified 10/14/24 11:06 Antibiotics) (SULFA (SULFONAMIDE ANTIBIOTICS)) Latex, Natural Rubber AdvReac Intermediate Verified 10/14/24 11:06 Rcjaowd-VZB-NnB Reductase AdvReac myalgias Verified 10/14/24 11:06 Inhibitor (Ggtjubk-Hqx-Ign Reductase Inhibitor) [facility] Disclaimer: The information contained in this section may have been updated after the patient was seen, as this information can be updated by other users. Social History Smoking Status: Never smoker alcohol intake: never substance use type: denies use current occupational status: retired Travel in the last 8 weeks: Inside the [place] Have you lived/traveled outside [place] in past 30 days?: No Contact w/someone who lives/traveled outside US past 30 days?: No Exposure to someone with infectious disease in past 14 days?: No Do you have a fever (greater than 100.4 F or 38 C)?: No Have you tested positive for COVID-19: No Exposed to someone with COVID-19 in past 14 days?: No Do you have a sore throat?: No Do you have a cough?: No Do you have any weakness?: Yes Do you have any diarrhea?: Yes Are you experiencing any unusual bleeding?: No Do you have any muscle aches/pain?: Yes Do you have any abdominal pain?: No Are you experiencing loss of taste or smell?: No Other Medical History Have you received the Flu Vaccine for this season: Yes Have you received the Pneumonia Vaccine: No ROS Obtained: Yes All systems reviewed & no additional complaints except as documented Physical Exam General General appearance: alert and in no apparent distress Head Head exam: atraumatic and normocephalic Eye Eye exam: Present normal appearance, PERRL and EOMI Neck Neck exam: Present normal inspection, full ROM and trachea midline Respiratory Respiratory exam: Present normal lung sounds bilaterally; Absent respiratory distress, wheezes, stridor, accessory muscle use or prolonged expiratory phase Cardiovascular Cardiovascular exam: Present regular rate, normal rhythm, systolic murmur and other (Pulses equal symmetric in upper and lower extremities) Abdominal Exam Abdominal exam: Present soft and tenderness; Absent distention, guarding, rebound, rigidity or pulsatile mass Abdominal tenderness: Present LLQ and mild Extremities Exam Extremities exam: Absent edema Neurological Exam Neurological exam: Present alert, oriented X3 and CN II-XII intact; Absent motor sensory deficit Skin Skin exam: Present warm and dry; Absent diaphoresis or erythema Medical Decision Making Medical Records Medical records reviewed: Yes I reviewed the patient's medical records. Screening: Per USPSTF and CDC recommendations, given the prevalence of disease in our region, it is our hospital?s policy to screen for HIV and viral Hepatitis for all patients aged 18 and over and those with ongoing risk factors. Venancio Inquiry Pt receiving controlled substance: No Venancio was queried for this patient: No Vital Signs: 02/14/25 17:49 02/14/25 18:00 02/14/25 18:30 Temperature 98.8 F Temperature Source Oral Pulse Rate 80 79 Pulse Rate [Right] 85 Respiratory Rate 18 22 15 Blood Pressure 131/88 132/78 Blood Pressure [Right Arm] 143/90 H Blood Pressure Mean [Right Arm] 107 Blood Pressure Source [Right Arm] Automatic Cuff Blood Pressure Position [Right Arm] Sitting 02 Sat by Pulse Oximetry 98 99 97 Oxygen Delivery Method Room Air Room Air Room Air 02/14/25 19:06 02/14/25 19:31 Temperature Temperature Source Pulse Rate 91 H 71 Pulse Rate [Right] Respiratory Rate 24 16 Blood Pressure 168/100 H 169/101 H Blood Pressure [Right Arm] Blood Pressure Mean [Right Arm] Blood Pressure Source [Right Arm] Blood Pressure Position [Right Arm] 02 Sat by Pulse Oximetry 98 99 Oxygen Delivery Method Lab Data Lab Results 02/14/25 17:50: SARS-CoV-2 (PCR) Not detected, Influenza A Untype (PCR) Not detected, Influenza Type B (PCR) Not detected 02/14/25 17:52: WBC 4.5 L, RBC 4.78, Hgb 14.4, Hct 43.7, MCV 91.4, MCH 30.1, MCHC 33.0, RDW 12.1, Plt Count 248, MPV 9.7, Neut % (Auto) 71.3, Lymph % (Auto) 16.0, [place] % (Auto) 8.7, Eos % (Auto) 2.9, Baso % (Auto) 0.9, Neut # (Auto) 3.2, Lymph # (Auto) 0.7, [place] # (Auto) 0.4, Eos # (Auto) 0.1, Baso # (Auto) 0.0, PT 10.4, INR 0.92, APTT 24.1, Sodium 139, Potassium 4.3, Chloride 101, Carbon Dioxide 29, Anion Gap 13.3, BUN 22 H, Creatinine 1.20 H, Estimated Creat Clear 39, Estimated GFR 43 L, Est GFR ( Amer) 52 L, Glucose 141 H, Calcium 9.8, Magnesium 2.3, Total Bilirubin 0.9, AST 28, ALT 15, Alkaline Phosphatase 163 H, Total Creatine Kinase 36, Troponin I < 0.01, Total Protein 8.1, Albumin 4.5, G lobulin 3.6 H, Albumin/Globulin Ratio 1.3 02/14/25 17:53: VBG pH 7.39, VBG pCO2 43.1, VBG pO2 29.4, VBG HCO3 25.4, VBG Total CO2 26.8, VBG O2 Saturation 54.3, VBG Base Excess 0.5, VBG Lactic Acid 1.5 02/14/25 19:02: Urine Opiates Screen Negative, Urine Methadone Screen Negative, Ur Barbituates Screen Negative, Ur Phencyclidine Scrn Negative, Ur Amphetamines Screen Negative, U Benzodiazepines Scrn Negative, Urine Cocaine Screen Negative, U Marijuana (THC) Screen Negative 02/14/25 : Urine Color Yellow, Urine Appearance Clear, Urine pH 6.5, Ur Specific [place] 1.020, Urine Protein Negative, Urine Glucose (UA) Negative, Urine Ketones Negative, Urine Blood Negative, Urine Nitrate Negative, Urine Bilirubin Negative, Urine Urobilinogen 0.2, Ur Leukocyte Esterase 1+ A, Urine RBC None, Urine WBC 3-5, Ur Squamous Epith Cells Occasional, Urine Bacteria Trace 02/14/25 17:52 02/14/25 17:52 Orders (Tests/Meds): ORDERS Category Date Time Status XR chest portable Stat Exams 02/14/25 17:52 Completed CK [Creatine Kinase] Stat Lab 02/14/25 17:52 Completed Complete Blood Count Auto Diff Stat Lab 02/14/25 17:52 Completed Comprehensive Metabolic Panel Stat Lab 02/14/25 17:52 Completed Diarrhea 23 Panel, PCR Stat Lab 02/14/25 17:53 Ordered Drug Screen,Urine Stat Lab 02/14/25 19:02 Completed Magnesium Stat Lab 02/14/25 17:52 Completed PT INR [Prothrombin Time INR] Stat Lab 02/14/25 17:52 Completed PTT [Activated Partial Thrombo Time] Stat Lab 02/14/25 17:52 Completed Rapid PCR Covid and Flu A/B Stat Lab 02/14/25 17:50 Completed Troponin I Q3H Lab 02/14/25 21:00 Ordered Troponin I Q3H Lab 02/15/25 00:00 Ordered Troponin I Stat Lab 02/14/25 17:52 Completed Urinalysis and Microscopic Stat Lab 02/14/25 Completed Urine Culture Stat Micro 02/14/25 Received Venous Blood Gas Stat RT 02/14/25 17:53 Completed Medical Decision Narrative: 79-year-old female presenting with vomiting, diarrhea and generalized weakness. Patient states that she had been constipated the last very 4 days. She took some laxatives earlier today, had large volume bowel movement a couple hours afterward. States that she also had 1 episode of vomiting. Nonbloody nonbilious vomiting and nonbloody bloody diarrhea. Also having cramping left lower quadrant abdominal pain that is mild in intensity does not radiate. No urinary symptoms. States that after the vomiting and diarrhea she felt weak, so family called EMS to bring her to the emergency department. History was obtained via conversation with patient and EMS. On arrival, patient hemodynamically stable, alert, oriented x4, appropriate, GCS 15, moving all extremities spontaneously, pupils equal and reactive to light. Full physical exam performed and significant for clinically well-appearing female no acute distress. She is answering all my questions appropriately. Minute soft, nondistended, minimally tender in left lower quadrant, but no evidence of peritonitis. No overlying skin changes. She is normotensive and nontachycardic. Cardiac exam with systolic murmur heard best at the apex with no gallops or rubs. No lower extremity edema. Pulses equal and symmetric in upper and lower extremities. Grossly neurologically intact. Differential includes gastritis, gastroenteritis, side effect of laxative medication, ARCENIO, metabolic abnormality, neurologic abnormality, less likely to be mesenteric ischemia, aortic pathology, among others. Patient placed on continuous cardiac monitoring and continuous pulse ox with initial blood pressure 143/90, heart rate 85, saturation 98% on room air. Independent interpretation of EKG shows sinus rhythm with right bundle branch block morphology. UT interval 153, QRS 122, QTc 420. Leftward axis and no acute ischemic change. Patient was given p.o. challenge for symptomatic management and correction of underlying abnormalities. Workup independently interpreted and significant for nonactionable hematologic labs, mild ARCENIO versus stable CKD creatinine 1.2. Troponin negative, urinalysis nonactionable. On independent interpretation of imaging, no acute cardiopulmonary space disease on chest x-ray. See radiology read for full review of final results. On reevaluation, patient states that she feels completely at her baseline, family agrees. I consider doing CT scan of the abdomen and pelvis, but on repeat evaluation, patient's abdominal pain is completely gone, no acute complaints, normal labs, normal vitals, I feel likely low yield. Given patient presentation, workup, history, this most likely represents vomiting and diarrhea in the setting of constipation and laxative use. Because patient at baseline without signs or symptoms of clinical decompensation, deemed appropriate for discharge. Results were relayed to patient who voiced understanding and were agreeable to outpatient management and follow up. I discussed my clinical impression with patient and answered all questions. At this time, the evidence for any other entities in the differential is insufficient to warrant any further testing or ED observation. This was explained as well. Advisory was given that persistent or worsening symptoms require further evaluation. I confirmed the understanding of this discussion. Clinic Supervisor disclaimer Much of this encounter note is an electronic contact center specialist spoken language to printed text. Electronic contact center specialist of the spoken language may permit errors. Although I have reviewed the note, some errors may still exist. Critical Care Critical Care Time Critical Care Time: No
[2025-02-14 19:19] LABS: Amphetamine/Metha Screen,Urine Negative ng/ml (<1000)
[2025-02-14 19:20] LABS: Barbiturates Screen,Urine Negative ng/ml (<200)
[2025-02-14 19:21] LABS: Benzodiazepines Screen,Urine Negative ng/ml (<200); Cannabinoid Screen,Urine Negative ng/ml (<50)
[2025-02-14 19:22] LABS: Cocaine Screen,Urine Negative ng/ml (<300)
[2025-02-14 19:23] LABS: Methadone Screen,Urine Negative ng/ml (<300); Opiate Screen,Urine Negative ng/ml (<300)
[2025-02-14 19:24] LABS: Phencyclidine Screen,Urine Negative ng/ml (<25)
[2025-02-14 19:39] LABS: Microscopic, Urine URINE MICROSCOPIC (MICROSCOPIC)
[2025-02-14 19:42] LABS: Appearance,Urine CLEAR (Clear); Bilirubin,Urine Negative (Negative); Blood, Urine Negative (Negative); Color,Urine YELLOW (Yellow); Glucose,Urine (UA) Negative (Negative); Ketones,Urine Negative (Negative); Leukocyte Esterase,Urine 1+ (Negative); Nitrate,Urine Negative (Negative); PH,Urine 6.5 (5.0-8.5); Protein,Urine Negative (Negative); Urobilinogen,Urine 0.2 EU/dl (0.2)
[2025-02-14 19:52] LABS: Bacteria,Urine Trace /lpf; Squamous Epithelial Cell,Urine Occasional #/hpf (0-5)
--- NOTE | 2025-02-18 19:40 | PC.NURSE ---
This RN made aware of urine culture results, MD changed prescription. This RN called and spoke with patient and informed her for new prescription.
--- OUTSIDE RECORDS SUMMARY | 2025-02-18 20:03 | XMS_ITS ---
Author Organization Unknown Results OrderDate OrderTestName ResultName ResultDate Value Units Range AbnormalFlag ResultStatus ObservationNotes TestCode ResultCode DateRecorded AccessionNumber DiagnosticSectionCode DiagnosticSectionName Sequence Interpretation 03/03/2024 00:00:00 Occult Blood, Stool, Guaiac [id number]:00:00 Negative Revie wed Occult Blood, Stool, Guaiac 03/03/2024 00:00:00
--- NOTE | 2025-02-26 14:42 | PC.NURSE ---
I s/w pt's daughter, Brittaney Becerra, who was calling in regards to ABX received in the mail for the pt. I let her know that d/t her completed urine culture the ER MD that received the results wanted pt to be on Keflex to treat e Coli in her urine.I apologized that the medication was sent via mail order pharmacy and the delay in receiving abx and treatment. Educated that pt should take Keflex, follow up with PCP or return to ER if she is still having symptoms or concerns.
== END 2025-02-14 20:24 | disposition home or self-care (01) ==
PROVIDERS: Emergency Provider Emergency Medicine; PCP Family Medicine
DX: R10.32 Left lower quadrant pain (principal); R07.89 Other chest pain; R11.0 Nausea; R19.7 Diarrhea, unspecified; R53.1 Weakness
CPT/HCPCS: 71045; 80053; 80307; 81001; 82550; 82803; 83735; 84484; 85025; 85610; 85730; 87086; 87088; 87186; 87636; 93005; 99284

== ENCOUNTER 2025-02-23 10:18 | Outpatient (CLI) | payer MEDICARE, SELFPAY ==
--- NOTE | 2025-02-23 10:22 | XR_ITS ---
FINAL REPORT CLINICAL HISTORY: ABD PAIN x1 month FINDINGS: A single supine view of the abdomen was obtained. There is a large amount of stool in the colon with mild gaseous distention in the more proximal colon. Otherwise, there is no obstruction. Pelvic calcifications are likely vascular. Osseous structures are within normal limits. IMPRESSION: Large amount of stool in the colon consistent with constipation. Reviewed, Interpreted and Dictated by Allison Coats MD Transcribed by Chio Conley Authenticated and [facility]
== END 2025-02-23 23:59 | disposition home or self-care (01) ==
LOC: RAD 10:19
PROVIDERS: PCP Family Medicine; Visit Provider Family Medicine
DX: R10.9 Unspecified abdominal pain (principal)
CPT/HCPCS: 74018

== ENCOUNTER 2025-08-20 13:06 | Outpatient (CLI) | payer MEDICARE, SELFPAY ==
[2025-08-20 13:33] LABS: Hematocrit 40.2 % (37.0-47.0); Hemoglobin 12.8 g/dL (12.2-16.2); Immature Granulocytes % 0.4 %; Mean Corpuscular HGB Conc 31.8 g/dL (31.8-35.4); Mean Corpuscular Hemoglobin 29.5 pg (27.0-31.2); Mean Corpuscular Volume 92.6 fl (81-99); Nucleated Red Blood Cells % 0 %; Platelet Count 207 K/mm3 (142-424); Red Blood Count 4.34 M/mm3 (4.20-5.40); Red Cell Distribution Width-SD 45.0 fL; White Blood Count 5.4 K/mm3 (4.8-10.8)
[2025-08-20 14:36] LABS: Alanine Aminotransferase 15 U/L (12-78); Albumin Level 4.2 g/dl (3.5-5.0); Albumin/Globulin Ratio 1.7 (1.1-1.8); Alkaline Phosphatase 161 U/L (38-126); Anion Gap 14.7 mEq/L (5-15); Aspartate Amino Transferase 24 U/L (14-36); Bilirubin,Total 0.8 mg/dl (0.2-1.3); Blood Urea Nitrogen 21 mg/dl (7-17); Calcium 9.4 mg/dl (8.4-10.2); Carbon Dioxide 25 mmol/L (22.0-30.0); Chloride 103 mmol/L (98-107); Cholesterol 224 mg/dl (140-200); Creatinine,Serum 0.90 mg/dl (0.52-1.04); Estimated Glomerular Filt Rate 60 ml/min (>60); GFR (African American) 73 ML/MIN (>60); Globulin 2.5 g/dL (1.3-3.2); Glucose 95 mg/dl (74-100); HDL Cholesterol 65 mg/dl (40-60); Potassium 4.7 mmoL/L (3.5-5.1); Sodium 138 mmol/L (136-145); Total Protein,Serum 6.7 g/dl (6.3-8.2); Triglycerides 83 mg/dl (30-150)
[2025-08-20 15:24] LABS: Vitamin B12 937 pg/mL (239-931)
== END 2025-08-20 23:59 | disposition home or self-care (01) ==
LOC: LAB 13:07
PROVIDERS: PCP Family Medicine; Visit Provider Family Medicine
DX: E78.2 Mixed hyperlipidemia (principal); E53.9 Vitamin B deficiency, unspecified; E55.9 Vitamin D deficiency, unspecified; I10 Essential (primary) hypertension; E87.6 Hypokalemia
CPT/HCPCS: 36415; 80053; 80061; 82607; 82652; 85025

== ENCOUNTER 2025-08-25 14:15 | Outpatient (CLI) | payer MEDICARE, SELFPAY ==
[2025-08-25 17:13] LABS: Folate 2.76 ng/mL
== END 2025-08-25 23:59 | disposition home or self-care (01) ==
LOC: LAB 14:16
PROVIDERS: PCP Family Medicine; Visit Provider Family Medicine
DX: E53.8 Deficiency of other specified B group vitamins (principal)
CPT/HCPCS: 82746